=== PATIENT | male | born 1950 | race Two or more races ===

== ENCOUNTER 2023-03-09 09:15 | Inpatient (IN) | payer OTHER ==
[~2023-03-09] VITALS: Ht 167.6 cm; Wt 77.1 kg
[2023-03-09 11:11] LABS: URINE APPEARANCE Clear; URINE BILIRRUBIN Negative (NEGATIVE); URINE BLOOD Negative; URINE COLOR Yellow; URINE GLUCOSE Negative (NEGATIVE); URINE LEUKOCYTE Negative; URINE NITRATE Negative; URINE PROTEIN Negative (NEGATIVE); URINE UROBILINOGEN 0.2 E.U./dl
[2023-03-09 11:12] LABS: URINE BACTERIA 7.5 uL (0.0-1933); URINE RBC 2.8 uL (0.0-20.8); URINE WBC 4.2 uL (0.0-23.2)
[2023-03-09] MEDS ORDERED: SIMVAST PO (11:23)
[2023-03-09] MEDS ORDERED: COZAAR100 MG PO (11:23)
[2023-03-09] MEDS ORDERED: TAMS0.4C PO (11:23)
[2023-03-09] MEDS ORDERED: ESCITALOPRAM OXA5 MG PO (11:24)
[2023-03-09 11:28] LABS: URINE EPITHELIAL CELLS 0.1 uL (0.0-38.8)
[2023-03-09 11:34] LABS: HEMATOCRIT 41.7 % (39.0-48.0); HEMOGLOBIN 14.1 g/dL (13-16.00); MEAN CELL VOLUME 84.5 fL (80.0-100.00); MEAN CORPUSCULAR HEMOGLOBIN 28.6 pg (27.00-32.0); MEAN CORPUSCULAR HGB CONC 33.9 g/dl (32.0-36.0); PLATELET COUNT 263 K/uL (150-450); RED BLOOD COUNT 4.93 M/uL (4.00-6.00); RED CELL DISTRIBUTION WIDTH 13.4 % (11.5-14.5)
[2023-03-09 11:56] LABS: INR 1.02; PARTIAL THROMBOPLASTIN TIME 27.6 SECONDS (22.0-34.0); PROTHROMBIN TIME 10.7 SECONDS (9.0-11.5)
[2023-03-09 12:30] LABS: CALCIUM 9.2 mg/dL (8.5-10.1); CREATININE SERUM 0.8 mg/dL (0.70-1.30); GFR 95.29; POTASSIUM 3.71 mEq/L (3.5-5.1)
[2023-03-12 06:11] LABS: HEMATOCRIT 32.1 % (39.0-48.0); HEMOGLOBIN 11.2 g/dL (13-16.00); MEAN CELL VOLUME 84.6 fL (80.0-100.00); MEAN CORPUSCULAR HEMOGLOBIN 29.5 pg (27.00-32.0); MEAN CORPUSCULAR HGB CONC 34.8 g/dl (32.0-36.0); PLATELET COUNT 202 K/uL (150-450); RED BLOOD COUNT 3.79 M/uL (4.00-6.00); RED CELL DISTRIBUTION WIDTH 13.1 % (11.5-14.5)
[2023-03-12 06:51] LABS: ALBUMIN 2.8 gm/dL (3.4-5.0); CREATININE SERUM 0.82 mg/dL (0.70-1.30); GFR 92.62; PHOSPHOROUS 3.6 mg/dL (2.5-4.9); POTASSIUM 3.8 mEq/L (3.5-5.1)
== END 2023-03-12 11:04 | disposition home or self-care (01) | DRG 708 ==
LOC: O/R 03-11 05:17 → MEDI 03-11 05:17 → SURG 03-11 07:00 → MEDI 03-11 15:50
PROVIDERS: ADMIT Urology; ATTEND Urology
PROC: 8E0W4CZ Robotic Assisted Procedure of Trunk Region, Percutaneous Endoscopic Approach (ICD-10-PCS; 2023-03-11)
PROC: 0VT04ZZ Resection of Prostate, Percutaneous Endoscopic Approach (ICD-10-PCS; principal; 2023-03-11 07:00)
DX: N40.1 Benign prostatic hyperplasia with lower urinary tract symptoms (principal); Z20.822 Contact with and (suspected) exposure to COVID-19
CPT/HCPCS: 55867; S2900

== ENCOUNTER 2023-05-23 21:28 | Emergency (ER) | payer OTHER ==
[~2023-05-23] VITALS: Ht 172.7 cm; Wt 90.7 kg
[~2023-05-23 21:28] MED LIST: COZAAR100 MG PO; ESCITALOPRAM OXA5 MG PO; SIMVAST PO; TAMS0.4C PO
[2023-05-23] MEDS ORDERED: KETOROLAC TROMETHAMINE 60 MG VIAL IM ONE (22:15)
[2023-05-23 23:55] LABS: HEMATOCRIT 40.9 % (39.0-48.0); HEMOGLOBIN 13.9 g/dL (13-16.00); MEAN CELL VOLUME 83.1 fL (80.0-100.00); MEAN CORPUSCULAR HEMOGLOBIN 28.2 pg (27.00-32.0); MEAN CORPUSCULAR HGB CONC 33.9 g/dl (32.0-36.0); PLATELET COUNT 263 K/uL (150-450); RED BLOOD COUNT 4.93 M/uL (4.00-6.00); RED CELL DISTRIBUTION WIDTH 13.8 % (11.5-14.5)
[2023-05-24] LABS: PH,URINE 5.5 (5.0-8.0); URINE APPEARANCE Turbid; URINE BILIRRUBIN Negative (NEGATIVE); URINE BLOOD Large; URINE COLOR Dark Yellow; URINE GLUCOSE Negative (NEGATIVE); URINE LEUKOCYTE Large; URINE NITRATE Positive
[2023-05-24 00:01] LABS: URINE BACTERIA 6497.8 uL (0.0-1933); URINE EPITHELIAL CELLS 11.5 uL (0.0-38.8); URINE RBC 27.1 uL (0.0-20.8)
[2023-05-24 00:10] LABS: URINE PROTEIN 100 (NEGATIVE); URINE WBC > 5548.3 uL (0.0-23.2)
[2023-05-24 00:12] LABS: ERYTHROCYTE SEDIMENTATION RATE 16 mm/hr
[2023-05-24] MEDS ORDERED: CEFTRIAXONE SODIUM 1,000 MG VIAL IM ONE (00:15)
== END 2023-05-24 00:27 | disposition home or self-care (01) ==
LOC: ER 21:28
PROVIDERS: General Practice
DX: N45.1 Epididymitis (principal); I10 Essential (primary) hypertension
CPT/HCPCS: 36415; 76870; 96372; 99284; J0696; J1885